=== PATIENT | female | born 1970 | race Caucasian/White ===

== ENCOUNTER → 2017-01-08 | Outpatient (CLI) | payer OTHER ==
--- NOTE | ~2017-01-08 | MY11 ---
[facility] A Service of [facility] RADIOLOGY TEXT RESULTS PATIENT: YOUNG LOCKETT LOCATION: [facility] : 70 UNIT #: [id number] AGE: [address]: Seamus Ashby MD SEX: F ORDER DR: [id number] [address] [address] [id number] O MR#: [id number] Acc #: [id number] NAME: YOUNG LOCKETT : 1970 SEX: F STUDY DATE/TIME: 01/08/2017 9:19 UNIT: [facility] ROOM: STUDY DESCRIPTION: MY Mammogram Screening Dig Christopher Attending Physician: Seamus Ashby M.D. Referring Physician: Seamus Ashby M.D. Ordering Physician: Seamus Ashby M.D. Primary Care Physician: Seamus Ashby M.D. MEDICAL IMAGING REPORT This report is preliminary unless electronic signature is present. EXAM Bilateral digital screening mammogram 01/08/2017 HISTORY Routine screening. No current complaints. No family history of breast cancer. COMPARISON STUDIES None FINDINGS MLO and CC digital views of each breast were obtained. The exam was reviewed with an FDA approved CAD device. The breasts are mostly fatty replaced. There is a nodule in the left breast located just behind a coarse calcification. The nodule is about 9 mm in diameter and is vague in density. Its border seems slightly irregular. IMPRESSION 1. The right breast is negative. 2. There is an indeterminate nodule in the left breast slightly lateral and superior to the nipple. It is about 3 cm behind the nipple. I would recommend additional imaging with spot compression views in each direction and a straight mediolateral view followed by ultrasound. Patients over the age of 40 are entered into a reminder system with target due date for the next mammogram. A result letter will also be sent to the patient. BIRADS: 0 - Need additional imaging evaluation and/or prior mammograms [facility] A Service [facility] RADIOLOGY TEXT RESULTS PATIENT: YOUNG LOCKETT LOCATION: [facility] : 70 UNIT #: [id number] AGE: [address]: Seamus Ashby MD SEX: F ORDER DR: for comparison Dictated by... Blaine Malik M.D. THIS IS AN ELECTRONICALLY VERIFIED REPORT Blaine Malik M.D. at 01/09/2017 7:13 AM DAYANNA/lance TD: 01/08/2017 15:13 JOB #: [id number] MEDICAL IMAGING REPORT
== END | disposition home or self-care (01) ==
LOC: SMAM 08:05
DX: Z12.31 Encounter for screening mammogram for malignant neoplasm of breast (principal); N63 Unspecified lump in breast
CPT/HCPCS: G0202

== ENCOUNTER → 2017-01-29 | Outpatient (CLI) | payer OTHER ==
--- NOTE | ~2017-01-29 | MY7 ---
[facility] A Service of [facility] RADIOLOGY TEXT RESULTS PATIENT: YOUNG LOCKETT LOCATION: [facility] : 70 UNIT #: [id number] AGE: [address]: Seamus Ashby MD SEX: F ORDER DR: [id number] [facility] [address] [place], [place] [address] [id number] O MR#: [id number] Acc #: [id number] NAME: YOUNG LOCKETT. : 1970 SEX: F STUDY DATE/TIME: 01/29/2017 8:37 UNIT: [facility] ROOM: STUDY DESCRIPTION: MY Mammogram Dx Dig Lt Attending Physician: Seamus Ashby M.D. Referring Physician: Seamus Ashby M.D. Ordering Physician: Seamus Ashby M.D. Primary Care Physician: Seamus Ashby M.D. MEDICAL IMAGING REPORT This report is preliminary unless electronic signature is present EXAM Left diagnostic mammogram, 01/29 INDICATION 46-year-old with no personal or family history of breast cancer. She reports for additional work-up of a nodule seen in the upper outer left breast on screening mammogram. FINDINGS Spot compression digital left CC and MLO views were obtained in addition to a standard true lateral view. Comparison is made with 01/08/2017. Again seen is a partially obscured nodular density at about the 1 o'clock position of the left breast measuring 9.0-10.0 mm in size. No associated microcalcifications. Ultrasound of the area was subsequently performed. Ultrasound demonstrates an ovoid hypoechoic lesion measuring up to 11.0 mm in greatest dimension. This does have internal echoes but does have increased through transmission. This has the appearance of a cluster of cysts. 6-month followup ultrasound is recommended to document stability. Findings and recommendations were discussed with the patient at the time of her examination today. IMPRESSION Probably benign mammogram and ultrasound. Lesion appears to represent a cluster of cysts at the 1 o'clock position of the left breast. 6-month followup ultrasound of the left breast is recommended to document stability. Patients over the age of 40 are entered into a reminder system with target due date for the next mammogram. A result letter will also be sent to the patient. BIRADS: 3 Probably Benign Finding; Short interval follow-up suggested Dictated by... [facility] A Service of [facility] RADIOLOGY TEXT RESULTS PATIENT: YOUNG LOCKETT LOCATION: [facility] : 70 UNIT #: [id number] AGE: [address]: Seamus Ashby MD SEX: F ORDER DR: Demario Moon Jr., M.D. THIS IS AN ELECTRONICALLY VERIFIED REPORT Demario Moon Jr., M.D. at 01/29/2017 4:47 PM CHRIS/miriam TD: 01/29/2017 11:56 JOB #: [id number] MEDICAL IMAGING REPORT Page 1 of 1 COPY
--- NOTE | ~2017-01-29 | US24 ---
[facility] A Service of [facility] RADIOLOGY TEXT RESULTS PATIENT: YOUNG LOCKETT LOCATION: [facility] : 70 UNIT #: [id number] AGE: [address]: Seamus Ashby MD SEX: F ORDER DR: [id number] [facility] [address] [place], [place] [address] [id number] O MR#: [id number] Acc #: [id number] NAME: YOUNG LOCKETT : 1970 SEX: F STUDY DATE/TIME: 01/29/2017 8:49 UNIT: [facility] ROOM: STUDY DESCRIPTION: US Breast Unilateral Attending Physician: Seamus Ashby M.D. Referring Physician: Seamus Ashby M.D. Ordering Physician: Seamus Ashby M.D. Primary Care Physician: Seamus Ashby M.D. MEDICAL IMAGING REPORT This report is preliminary unless electronic signature is present EXAM Ultrasound left breast, 01/29 INDICATION Abnormal mammogram showing a lesion in the upper outer left breast. The patient has no complaints. FINDINGS For a full report, please see the mammogram report dated 01/29/2017. Patients over the age of 40 are entered into a reminder system with target due date for the next mammogram. A result letter will also be sent to the patient. BIRADS: 3 Probably benign finding; short interval follow-up suggested. Dictated by... Demario Moon Jr., M.D. THIS IS AN ELECTRONICALLY VERIFIED REPORT Demario Moon Jr., M.D. at 01/29/2017 4:47 PM CHRIS/sangeetha TD: 01/29/2017 12:01 JOB #: [id number] MEDICAL IMAGING REPORT Page 1 of 1 COPY
== END | disposition home or self-care (01) ==
LOC: CMAM 08:17
DX: R92.8 Other abnormal and inconclusive findings on diagnostic imaging of breast (principal)
CPT/HCPCS: 76641; G0206